=== PATIENT | female | born 1955 | race Caucasian/White ===

== ENCOUNTER 2021-02-20 08:49 | Outpatient (REF) | payer OTHER, SELFPAY ==
[2021-02-20 10:02] LABS: MANUAL DIFF FLAG NO
[2021-02-20 10:07] LABS: Basophils Percent Auto 0.4 % (0-2); Eosinophils Percent Auto 0.1 % (0-4); Hematocrit 42.2 % (37-47); Hemoglobin 13.8 g/dl (12.0-16.0); Imm Gran Abs Auto 0.06 X10*3/uL (0.00-0.03); Imm Gran Pct Auto 0.6 % (0.0-0.4); Lymphocytes Absolute Auto 1.7 X10*3/uL (1.2-4.9); Mean Corpuscular HGB Conc 32.7 g/dl (31.0-35.0); Mean Corpuscular Hemoglobin 29.2 pg (27.0-33.0); Mean Corpuscular Volume 89.2 fL (80-98); Mean Platelet Volume 10.5 fL (9.4-12.3); Monocytes Absolute Auto 0.5 X10*3/uL (0.1-1.2); Monocytes Percent Auto 5.3 % (2-11); Neutrophils Absolute Auto 7.5 X10*3/uL (2.0-8.3); Neutrophils Percent Auto 76.6 % (45-73); Platelet Count 231 X10*3/uL (160-400); Red Blood Count 4.73 X10*6/uL (4.20-5.50); Red Cell Distribution Width 12.5 % (11.0-16.0); White Blood Count 9.8 X10*3/uL (4.8-10.8)
[2021-02-20 10:24] LABS: Alanine Aminotransferase 23 U/L (0-31); Albumin Level 4.4 g/dL (3.5-5.0); Alkaline Phosphatase 68 U/L (39-117); Anion Gap 10 (12-20); Aspartate Amino Transferase 20 U/L (5-31); Bilirubin Total 0.6 mg/dL (0.0-1.0); Blood Urea Nitrogen 21 mg/dL (9-16); Calcium 10.2 mg/dL (8.4-10.2); Carbon Dioxide 30 mmol/L (22-29); Chloride 105 mmol/L (96-108); Cholesterol 220 mg/dL; Estimated Glomerular Filt Rate > 60; Glucose Fasting 87 mg/dL (60-99); HDL Cholesterol 66 mg/dL; LDL Cholesterol Calculated 143 mg/dl; Potassium 4.5 mmol/L (3.3-5.1); Sodium 140 mmol/L (135-145); Total Protein 6.8 g/dL (6.5-8.0); Triglycerides 59 mg/dL
[2021-02-20 10:48] LABS: TSH reflex Free T4 1.51 uIU/mL (0.32-4.0); Vitamin D 25-OH Total 23.1 ng/mL (>30)
[2021-02-20 14:34] LABS: Microalbum/Creatinine Ratio Ur 6.2 ug/mg cr
== END 2021-02-20 08:50 | disposition home or self-care (01) ==
LOC: HO.10HDL 08:49
PROVIDERS: Visit Provider Internal Medicine
DX: Z00.00 Encounter for general adult medical examination without abnormal findings (principal); I10 Essential (primary) hypertension; E55.9 Vitamin D deficiency, unspecified
CPT/HCPCS: 36415; 80053; 80061; 82043; 82306; 84443; 85025

== ENCOUNTER 2021-07-12 08:35 | Outpatient (REF) | payer OTHER, SELFPAY ==
[2021-07-12 10:43] LABS: Cholesterol 190 mg/dL; HDL Cholesterol 49 mg/dL; LDL Cholesterol Calculated 129 mg/dl; Triglycerides 60 mg/dL
== END 2021-07-12 08:36 | disposition home or self-care (01) ==
LOC: HO.10HDL 08:35
PROVIDERS: Visit Provider Internal Medicine
DX: E78.5 Hyperlipidemia, unspecified (principal)
CPT/HCPCS: 36415; 80061

== ENCOUNTER 2021-09-11 14:08 | Outpatient (REF) | payer OTHER, SELFPAY | END 2021-09-11 14:09 | disposition home or self-care (01) | LOC: HO.LNP 14:08 | PROVIDERS: Visit Provider Otolaryngology | DX: H92.03 Otalgia, bilateral (principal); B36.8 Other specified superficial mycoses | CPT/HCPCS: 87071; 87077; 87102; 87205 ==

== ENCOUNTER 2022-04-03 08:24 | Outpatient (REF) | payer OTHER, SELFPAY ==
[2022-04-03 11:10] LABS: MANUAL DIFF FLAG NO
[2022-04-03 11:38] LABS: Basophils Absolute Auto 0.1 X10*3/uL (0.0-0.2); Eosinophils Absolute Auto 0.2 X10*3/uL (0.0-0.4); Hematocrit 41.1 % (37.0-47.0); Hemoglobin 13.6 g/dl (12.0-16.0); Imm Gran Abs Auto 0.02 X10*3/uL (0.00-0.03); Imm Gran Pct Auto 0.4 % (0.0-0.4); Lymphocytes Absolute Auto 1.7 X10*3/uL (1.2-4.9); Lymphocytes Percent Auto 33.5 % (20-40); Mean Corpuscular HGB Conc 33.1 g/dl (31.0-35.0); Mean Corpuscular Hemoglobin 29.4 pg (27.0-33.0); Mean Corpuscular Volume 88.8 fL (80.0-98.0); Mean Platelet Volume 10.9 fL (9.4-12.3); Monocytes Absolute Auto 0.4 X10*3/uL (0.1-1.2); Monocytes Percent Auto 8.3 % (2-11); Neutrophils Absolute Auto 2.7 x10*3/uL (2.0-8.3); Neutrophils Percent Auto 53.8 % (45-73); Platelet Count 190 X10*3/uL (160-400); Red Blood Count 4.63 X10*6/uL (4.20-5.50); Red Cell Distribution Width 12.3 % (11.0-16.0)
[2022-04-03 14:31] LABS: Alanine Aminotransferase 14 U/L (0-31); Albumin Level 4.2 g/dL (3.5-5.0); Alkaline Phosphatase 68 U/L (39-117); Anion Gap 9 (12-20); Aspartate Amino Transferase 18 U/L (5-31); Bilirubin Direct 0.2 mg/dL (0.0-0.5); Bilirubin Total 0.8 mg/dL (0.0-1.0); Blood Urea Nitrogen 19 mg/dL (9-16); Calcium 9.8 mg/dL (8.4-10.2); Carbon Dioxide 30 mmol/L (22-29); Chloride 108 mmol/L (96-108); Cholesterol 195 mg/dL; Estimated Glomerular Filt Rate > 60; Glucose Fasting 84 mg/dL (60-99); HDL Cholesterol 55 mg/dL; LDL Cholesterol Calculated 128 mg/dl; Potassium 4.6 mmol/L (3.3-5.1); Sodium 142 mmol/L (135-145); TSH reflex Free T4 2.57 uIU/mL (0.32-4.0); Total Protein 6.2 g/dL (6.5-8.0); Triglycerides 62 mg/dL; Vitamin D 25-OH Total 24.4 ng/mL (>30)
[2022-04-03 14:51] LABS: Creatinine Urine 64.75 mg/dL; Microalbumin Urine < 5.0 mg/L
== END 2022-04-03 08:25 | disposition home or self-care (01) ==
LOC: HO.10HDL 08:24
PROVIDERS: Visit Provider Internal Medicine
DX: I10 Essential (primary) hypertension (principal); E55.9 Vitamin D deficiency, unspecified; E78.5 Hyperlipidemia, unspecified
CPT/HCPCS: 36415; 80048; 80061; 80076; 82043; 82306; 84443; 85025

== ENCOUNTER 2023-05-09 12:32 | Outpatient (REF) | payer BC, SELFPAY ==
[2023-05-11 09:33] LABS: CA-125 10 U/mL (<35)
== END 2023-05-09 12:33 | disposition home or self-care (01) ==
LOC: HO.10HDL 12:32
PROVIDERS: PCP Internal Medicine; Visit Provider Obstetrics & Gynecology
DX: Z85.43 Personal history of malignant neoplasm of ovary (principal)
CPT/HCPCS: 36415; 86304

== ENCOUNTER 2023-06-06 07:36 | Outpatient (REF) | payer BC, SELFPAY ==
[2023-06-06 07:50] LABS: MANUAL DIFF FLAG NO
[2023-06-06 08:17] LABS: Basophils Percent Auto 0.8 % (0-2); Eosinophils Absolute Auto 0.2 X10*3/uL (0.0-0.4); Eosinophils Percent Auto 3.9 % (0-4); Hemoglobin 14.1 g/dl (12.0-16.0); Imm Gran Abs Auto 0.01 X10*3/uL (0.00-0.03); Imm Gran Pct Auto 0.2 % (0.0-0.4); Lymphocytes Percent Auto 40.7 % (20-40); Mean Corpuscular HGB Conc 32.8 g/dl (31.0-35.0); Mean Corpuscular Hemoglobin 28.7 pg (27.0-33.0); Mean Corpuscular Volume 87.4 fL (80.0-98.0); Mean Platelet Volume 10.7 fL (9.4-12.3); Monocytes Absolute Auto 0.4 X10*3/uL (0.1-1.2); Monocytes Percent Auto 7.6 % (2-11); Neutrophils Absolute Auto 2.3 x10*3/uL (2.0-8.3); Neutrophils Percent Auto 46.8 % (45-73); Platelet Count 190 X10*3/uL (160-400); Red Blood Count 4.92 X10*6/uL (4.20-5.50); Red Cell Distribution Width 12.1 % (11.0-16.0); White Blood Count 4.9 X10*3/uL (4.8-10.8)
[2023-06-06 08:47] LABS: Alanine Aminotransferase 15 U/L (0-31); Albumin Level 4.1 g/dL (3.5-5.0); Alkaline Phosphatase 72 U/L (39-117); Anion Gap 9 (12-20); Aspartate Amino Transferase 17 U/L (5-31); Bilirubin Direct 0.2 mg/dL (0.0-0.5); Bilirubin Total 0.6 mg/dL (0.0-1.0); Blood Urea Nitrogen 23 mg/dL (9-16); Calcium 10.2 mg/dL (8.4-10.2); Carbon Dioxide 30 mmol/L (22-29); Chloride 107 mmol/L (96-108); Cholesterol 193 mg/dL (<200); Estimated Glomerular Filt Rate > 60; Glucose Random 83 mg/dL (60-115); HDL Cholesterol 64 mg/dL (>40); LDL Cholesterol Calculated 119 mg/dL (<100); Potassium 4.7 mmol/L (3.3-5.1); Sodium 141 mmol/L (135-145); Total Protein 6.8 g/dL (6.5-8.0); Triglycerides 52 mg/dL (<150)
[2023-06-06 09:06] LABS: TSH reflex Free T4 1.59 uIU/mL (0.32-4.0); Vitamin D 25-OH Total 27.1 ng/mL (>30)
[2023-06-06 14:19] LABS: Creatinine Urine 87.47 mg/dL; Microalbumin Urine < 5.0 mg/L
== END 2023-06-06 07:37 | disposition home or self-care (01) ==
LOC: HO.LAB 07:36
PROVIDERS: Visit Provider Internal Medicine
DX: E78.5 Hyperlipidemia, unspecified (principal); E03.9 Hypothyroidism, unspecified; E55.9 Vitamin D deficiency, unspecified; I10 Essential (primary) hypertension
CPT/HCPCS: 36415; 80048; 80061; 80076; 82043; 82306; 82570; 84443; 85025

== ENCOUNTER 2024-05-25 08:26 | Outpatient (REF) | payer BC, SELFPAY ==
--- OUTSIDE RECORDS SUMMARY | 2024-05-25 12:44 | XMS_ITS | Patient Health Record ---
[facility] Address [address] [place] [address] Care Team Providers Care Operations And Maintenance Technican Name Role Phone Nasim HAAS, [facility] Primary Care Provide r Enoc Crane Unavailable [phone] Allergies No Known Allergies Reason For Referral No Information Medications Medication SIG (Take, Route, Frequency, Duration) Notes Start Date End Date Status Vitamin D3 2000 UNIT Orally 05/18/2014 Active Voltaren 1 % as directed External ly apply bid to joint pain for 30 days Not-Taking Physical Therapy . . . 2-3x/week for 3- 4 weeks 05/19/2021 Active Levothyroxine Sodium 75 MCG Oral for 30 Active Immunizations Vaccine Route Administration Date Status Comme nts COVID-19 Pfizer BioNTech Vaccine Unknown 06/14/2020 Adm inistered 1st 05/23/20 Social History Tobacco Use: Social History Observation Description Date Details (start date - stop date) Never Smoker NA - NA Tobacco Use/Smoking Question Answer Notes Are you a: nonsmoker Additional Findings: Tobacco Non-User Current no n-smoker Alcohol Screen Question Answer Notes Did you have a drink containing alcohol in the p ast year? No Points 0 Interpretation Negative Tobacco use other than smoking: Question Answer Notes Are you an other tobacco user? No Problems Problem Type SNOMED Code ICD Code Onset Dates Problem Status W/U Status Risk Notes Problem Acquired hallux valgus (63489794) Hallux valgus (acquired), right foot (M20.11) Active confirmed Problem 646538538 Hammer toe of right foot (M20.41) Active confirmed Plan Of Treatment Pending Test Test Name Order Date X ray : Foot, right 3V 05/24/2020 X ray : Foot, right 3V 03/10/2021 X ray : Foot, right 3V 05/21/201479890, J0702- INJECT TENDON ORIGIN/INSER T 11/23/2020, J0702- INJECT TENDON ORIGIN/INSER T 03/10/2021 Insurance Providers Payer Name Payer Address Payer Phone Subscriber Number Group Number Insured Name Patient Relationship to Insured Coverage Start Date Coverage End Date [facility] [address] [place] [address] [id number] Evangelina Romero Self - patient is the insured 0 Medical (General) History Medical History History ICD Code Cancer Chicken pox Measles Mumps Thyroid disorder Neuralgia - Neuritis 729.2 Neuralgia - Neuritis 729.5 Pain in Limb 719.97 Arthritis - Degenerative 735.0 Hallux Valgus 735.4 Hammer toe Surgical History Surgery Date(Month/Year) tonsillectomy 1963 wisdom teeth extraction 1974 section 1987 ovarian surgery 1992
--- OUTSIDE RECORDS SUMMARY | 2024-05-25 12:44 | XMS_ITS ---
Author Organization [facility] Address [address] [place] [address] Care Team Providers Care Metal Drilling Machine Operator Name Role Phone Nasim HAAS, [facility] Primary Care Provide r Juan Carlos Garcia Jr Unavailable [phone] ALLERGIES No Known Allergies REASON FOR VISIT Patient presents today for consultation and evaluation MEDICATIONS Medication SIG (Take, Route, Fr equency, Duration) Notes Start Date End Date Status Synthroid 75 MCG 1 tablet in the morn ing on an empty stomach Orally Once a day for 30 day(s) Active SOCIAL HISTORY Tobacco Use: Social History Observation Description Date Details (start date - stop date) Never Smoker NA - NA Sex Assigned At : Social History Observation Description Sex Assigned At Unknown Tobacco Use/Smoking Question Answer Notes Patient is a nonsmoker Alcohol Screen Question Answer Notes Did you have a drink containing alcohol in the p ast year? No Points 0 Interpretation Negative PROBLEMS Problem Type ICD Code Onset Dates Problem Status W/U Status Risk SNOMED Code Notes Problem Rectal bleeding (K62.5) Active confirmed 52776142 Problem Hemorrhoids, unspecified hemorrhoid type (K64.9) Active confirmed 36475089 Problem Colon cancer screening (Z12.11) Active confirmed 039781471 VITAL SIGNS BMI 31.47 kg/m2 02/20/2023 Blood pressure systolic 000 mm Hg 02/21/20 23 Blood pressure diastolic 00 mm Hg 023 Height 5 ft 6 in in 02/20/2023 Temperature 97.4 degrees Fahrenheit 02/21/20 23 Weight 195 lbs 02/20/2023 Encounters Encounter Location Date Provider Diagnosis [facility] [address] [place] [address] 02/20/2023 Juan Carlos Mendosa Jr Rectal bleeding K62.5 ; Hemorrhoids, unspecified hemorrhoid type K64.9 and Colon cancer screening Z12.11 ASSESSMENTS Encounter Date Diagnosis Assessment Notes Treatment Notes Treatment Clinical Notes 02/20/2023 Rectal bleeding (ICD-10 - K62.5) Hemorrhoids material was printed 02/20/2023 Hemorrhoids, unspecified hemorrhoid type (ICD-10 - K64.9) 02/20/2023 Colon cancer screening (ICD-10 - Z12.11) PLAN OF TREATMENT Treatment Notes Assessment Notes Rectal bleeding Hemorrhoids material was printed Next Appt Details Follow Up: prn, Reason: Progress Notes * Examination Category Sub-Category Detail Notes General Examination GENERAL APPEARANCE: in no ac unga distress HEAD: normocephalic EYES: sclera non-icteric NECK/THYROID: no lymphadenopathy HEART: S1, S2 normal, no mu rmurs CHEST: normal shape and exp ansion LUNGS: clear to auscultatio n bilaterally ABDOMEN: soft, nontender, non distended, bowel sounds present, no organomegaly SKIN: anicteric EXTREMITIES: no clubbing, cyanosi s, or edema PSYCH: cognitive function i ntact ORAL CAVITY: mucosa moist
--- OUTSIDE RECORDS SUMMARY | 2024-05-25 12:44 | XMS_ITS | Patient Health Record ---
Author Organization [facility] Address [address] [place] [address] Care Team Providers Care Retail Inventory Control Clerk Name Role Phone Nasim HAAS, [facility] Primary Care Provide r Unavailable Juan Carlos Mendosa Jr Unavailable [phone] ALLERGIES No Known Allergies REASON FOR REFERRAL No Information MEDICATIONS Medication SIG (Take, Route, Fr equency, Duration) Notes Start Date End Date Status Synthroid 75 MCG 1 tablet in the morn ing on an empty stomach Orally Once a day for 30 day(s) Active IMMUNIZATIONS Vaccine Route Administration Date Status Comme nts Influenza Unknown 02/06/2022 Administered SOCIAL HISTORY Tobacco Use: Social History Observation [...] Notes Problem Rectal bleeding (K62.5) Active confirmed 19430479 Problem Hemorrhoids, unspecified hemorrhoid type (K64.9) Active confirmed 99278881 Problem Colon cancer screening (Z12.11) Active confirmed [id number] PLAN OF TREATMENT No Information Insurance Providers Payer Name Payer Address Payer Phone Subscriber Number Group Number Insured Name Patient Relationship to Insured Coverage Start Date Coverage End Date [facility] [address] [place] [address] [id number] AZRA MOSS Self - patient is the insured MEDICAL (GENERAL) HISTORY Medical History History ICD Code ovarian cancer Hypothyroidism Surgical History Surgery Date(Month/Year) Tonsillectomy [place] teeth extraction Oophorectomy
[2024-05-26 12:18] LABS: CA-125 13 U/mL (<35)
== END 2024-05-25 08:27 | disposition home or self-care (01) ==
LOC: HO.10HDL 08:26
PROVIDERS: Visit Provider Obstetrics & Gynecology
DX: Z85.43 Personal history of malignant neoplasm of ovary (principal)
CPT/HCPCS: 36415; 86304